=== PATIENT | female | born 1975 | race Caucasian/White ===

== ENCOUNTER 2018-04-29 23:20 | Observation (INO) ==
[2018-04-30] MEDS ORDERED: Isovue-370 500 ML INFUS..BTL IV ONE (01:06)
--- NOTE | 2018-04-30 01:12 | Emergency Department Note ---
Disposition Clinical Impression: Abscess of left breast Disposition: Admitted As Inpatient Condition: Fair Time of Disposition: 05:18 Skin/Abscess/FB HPI Chief complaint: ED Skin/Abscess/Foreign Body Stated complaint: "sore under Lt breast" Time Seen by Provider: 04/30/18 00:46 Source: patient Limitations: no limitations Nursing Notes Reviewed: Yes Vital Signs Reviewed: Yes HPI Narrative: Nontoxic-appearing 43-year-old female presents for evaluation of a left breast abscess noted to began approximate 5 days ago. The patient states "it started off like a small pimple". She states that "I popped the pimple and 2 days later he began to drain a white colored discharge." Yesterday, the entire medial and lower aspect of the left breast became erythematous. She complains of worsening pain, nausea, vomiting, and subjective fevers. Pt Subjective Complaint: abscess/boil Onset (ago): day(s) (5) Location: chest Severity: severe Severity scale (1-10): 8 Quality: aching Consistency: Worsening Improves with: none Worsens with: palpation Associated symptoms: Reports: fever, chills, nausea, vomiting, malaise Treatments prior to arrival: none Previous Rx's Medication Instructions Recorded Fenoprofen Calcium 600 mg PO TID PRN 10 Days #30 04/07/18 tablet Allergies Allergy/AdvReac Type Severity Reaction Status Date / Time acetaminophen [From Vicodin] Allergy Headache Verified 04/29/18 23:26 clarithromycin [From Biaxin] Allergy Difficulty Verified 04/29/18 23:26 Breathing hydrocodone [From Vicodin] Allergy Headache Verified 04/29/18 23:26 sumatriptan [From Imitrex] Allergy Hives Verified 04/29/18 23:26 All systems ED: reviewed and negative except as stated. Review of Systems: As Per HPI Constitutional: Denies: fever, chills, weakness, weight change Eyes: Denies: eye pain, eye discharge, vision change ENT ED: Denies: ear pain, throat pain, dental pain, hearing loss, epistaxis, congestion, dysphagia Cardiovascular: Denies: chest pain, palpitations, dyspnea on exertion, edema, syncope Respiratory: Denies: cough, dyspnea, wheezes, hemoptysis, stridor Gastrointestinal: Denies: abdominal pain, nausea, vomiting, diarrhea, constipation, hematemesis, melena, hematochezia Genitourinary: Denies: dysuria, frequency, hematuria, discharge Musculoskeletal: Denies: back pain, neck pain, arthralgia, myalgia Integumentary: Reports: as per HPI, other (Left breast abscess). Denies: rash, abrasion, lesions Neurological: Denies: headache, weakness, numbness, paresthesias, confusion, abnormal gait, vertigo Psychiatric: Denies: anxiety, depression, suicidal thoughts, homicidal thoughts , auditory hallucinations, visual hallucinations Endocrine: Denies: fatigue Hematological/Lymphatic: Denies: easy bleeding, easy bruising Allergic/Immunologic: Denies: facial swelling, urticaria Past Medical History - Past Medical History Attestation: Yes The following information was validated with the patient. Source: patient, nursing notes reviewed Medical history: Reports: non-contributory Surgical history: Reports: orthopedic, other (right knee scope) Psychiatric history: Reports: anxiety, bipolar, depression - Social History Smoking Status: Current every day smoker Smokeless Tobacco Status: No Alcohol use: Reports: none Drug use: Reports: none Physical Exam - General Limitations: no limitations General appearance: alert - Head Head exam: atraumatic, normocephalic, normal inspection - Eye Eye exam: Present: normal appearance, PERRL, EOMI. Absent: nystagmus - ENT ENT exam: mucous membranes moist - Neck Neck exam: Present: normal inspection, full ROM, trachea midline - Expanded Chest Exam Trauma: Present: other Breast: erythema: left, swelling: left, tenderness: left, mass: left - Extremities Exam Extremities exam: Present: normal inspection, full ROM. Absent: tenderness, pedal edema - Neurological Exam Neurological exam: Present: alert, oriented X3 - Psychiatric Psychiatric exam: Present: normal affect, normal mood - Skin Skin exam: Present: warm, dry - Expanded Skin Exam Type of lesion: Present: abscess 1 - Marked erythema of the medial/inferior quadrant of the left breast. Apparently cellulitic changes extend up to the level of the areola. Palpable area of induration measures approximately 3 cm x 2.5 cm within the area of cellulitis. Bedside ultrasound concerning for deep space abscess. 2 - Small, approximately 1 cm x 1 cm shallow-appearing ulceration with purulent drainage noted. Course Course Narrative: 0517: Dr. Jones, general surgeon insurance verification rep has had a bedside evaluation with the patient. He recommends the administration of IV vancomycin and admission to the hospitalist service for IV antibiotics and inpatient surgical consultation for probable abscess drainage. I discussed this plan with Dr. Savage, ED attending. Dr. Savage has had a [id number] evaluation with the patient and agrees with this plan. 0530: I spoke with Dr. Rubio, hospitalist on-call. After [facility] has accepted the patient for permission to the hospital service with in-house surgery consultation Vital Signs Temperature 98.7 F 04/29/18 23:26 Pulse Rate 90 04/29/18 23:26 Respiratory Rate 15 04/29/18 23:26 Blood Pressure 109/69 04/29/18 23:26 O2 Sat by Pulse Oximetry 98 04/29/18 23:26 Temperature 98.7 F 04/29/18 23:26 Pulse Rate 81 04/30/18 05:17 Respiratory Rate 18 04/30/18 05:17 Blood Pressure 119/77 04/30/18 05:17 O2 Sat by Pulse Oximetry 100 04/30/18 05:17 Oxygen Delivery Oxygen Delivery Room Air Skin/Abscess/Foreign Body - Medical Records Medical records reviewed: Yes I reviewed the patient's medical records. - Lab Data Lab results reviewed: Yes I reviewed the patient's lab results. Lab results narrative: Lab Results 04/30/18 04/30/18 04/30/18 Range/Units 01:06 01:06 01:06 WBC (4.3-11.1) K/mcL RBC (3.82-4.97) M/mcL Hgb (11.5-15.4) g/dL Hct (35.3-44.9) % MCV (83.0-100.0) fL MCH (28.0-33.3) pg MCHC (31.6-35.5) g/dL RDW (11.5-14.5) % Plt Count (140-400) K/mcL MPV (9.4-12.4) fL Immature Gran % (0-4) % Seg Neutrophils % % Lymphocytes % % Monocytes % % Eosinophils % % Basophils % % Neutrophils # (1.6-8.9) K/mcL Lymphocytes # (0.6-4.6) K/mcL Monocytes # (0.0-1.3) K/mcL Eosinophils # (0.0-0.6) K/mcL Basophils # (0.0-0.2) K/mcL ESR 36 H (0-15) mm/hr Sodium 134 L (136-145) mEq/L Potassium 3.3 L (3.5-5.1) mEq/L Chloride 99 (98-107) mEq/L Carbon Dioxide 28 (23-29) mEq/L BUN 10 (6-20) mg/dL Creatinine 0.66 (0.60-1.20) mg/dL Est GFR ( Amer) > 60 (> 60) Est GFR (Non-Af Amer) > 60 (> 60) BUN/Creatinine Ratio 15 (6-26) Glucose 106 H (70-105) mg/dL Calculated Osmolality 277 L (280-300) Calcium 9.4 (8.6-10.3) mg/dL C-Reactive Protein 80 H (Less than 10) mg/L Serum , Qual Negative (Negative) 04/30/18 Range/Units 02:05 WBC 11.8 H (4.3-11.1) K/mcL RBC 4.75 (3.82-4.97) M/mcL Hgb 14.3 (11.5-15.4) g/dL Hct 41.3 (35.3-44.9) % MCV 86.9 (83.0-100.0) fL MCH 30.1 (28.0-33.3) pg MCHC 34.6 (31.6-35.5) g/dL RDW 13.0 (11.5-14.5) % Plt Count 168 (140-400) K/mcL MPV 10.9 (9.4-12.4) fL Immature Gran % 0.4 (0-4) % Seg Neutrophils % 72.1 % Lymphocytes % 17.2 % Monocytes % 9.6 % Eosinophils % 0.5 % Basophils % 0.2 % Neutrophils # 8.5 (1.6-8.9) K/mcL Lymphocytes # 2.0 (0.6-4.6) K/mcL Monocytes # 1.1 (0.0-1.3) K/mcL Eosinophils # 0.1 (0.0-0.6) K/mcL Basophils # 0.0 (0.0-0.2) K/mcL ESR (0-15) mm/hr Sodium (136-145) mEq/L Potassium (3.5-5.1) mEq/L Chloride (98-107) mEq/L Carbon Dioxide (23-29) mEq/L BUN (6-20) mg/dL Creatinine (0.60-1.20) mg/dL Est GFR ( Amer) (> 60) Est GFR (Non-Af Amer) (> 60) BUN/Creatinine Ratio (6-26) Glucose (70-105) mg/dL Calculated Osmolality (280-300) Calcium (8.6-10.3) mg/dL C-Reactive Protein (Less than 10) mg/L Serum , Qual (Negative) Result diagrams: 04/30/18 02:05 04/30/18 01:06 Lab Results 04/30/18 04/30/18 04/30/18 Range/Units 01:06 01:06 01:06 WBC (4.3-11.1) K/mcL RBC (3.82-4.97) M/mcL Hgb (11.5-15.4) g/dL Hct (35.3-44.9) % MCV (83.0-100.0) fL MCH (28.0-33.3) pg MCHC (31.6-35.5) g/dL RDW (11.5-14.5) % Plt Count (140-400) K/mcL MPV (9.4-12.4) fL Immature Gran % (0-4) % Seg Neutrophils % % Lymphocytes % % Monocytes % % Eosinophils % % Basophils % % Neutrophils # (1.6-8.9) K/mcL Lymphocytes # (0.6-4.6) K/mcL Monocytes # (0.0-1.3) K/mcL Eosinophils # (0.0-0.6) K/mcL Basophils # (0.0-0.2) K/mcL ESR 36 H (0-15) mm/hr Sodium 134 L (136-145) mEq/L Potassium 3.3 L (3.5-5.1) mEq/L Chloride 99 (98-107) mEq/L Carbon Dioxide 28 (23-29) mEq/L BUN 10 (6-20) mg/dL Creatinine 0.66 (0.60-1.20) mg/dL Est GFR ( Amer) > 60 (> 60) Est GFR (Non-Af Amer) > 60 (> 60) BUN/Creatinine Ratio 15 (6-26) Glucose 106 H (70-105) mg/dL Calculated Osmolality 277 L (280-300) Calcium 9.4 (8.6-10.3) mg/dL C-Reactive Protein 80 H (Less than 10) mg/L Serum , Qual Negative (Negative) 04/30/18 Range/Units 02:05 WBC 11.8 H (4.3-11.1) K/mcL RBC 4.75 (3.82-4.97) M/mcL Hgb 14.3 (11.5-15.4) g/dL Hct 41.3 (35.3-44.9) % MCV 86.9 (83.0-100.0) fL MCH 30.1 (28.0-33.3) pg MCHC 34.6 (31.6-35.5) g/dL RDW 13.0 (11.5-14.5) % Plt Count 168 (140-400) K/mcL MPV 10.9 (9.4-12.4) fL Immature Gran % 0.4 (0-4) % Seg Neutrophils % 72.1 % Lymphocytes % 17.2 % Monocytes % 9.6 % Eosinophils % 0.5 % Basophils % 0.2 % Neutrophils # 8.5 (1.6-8.9) K/mcL Lymphocytes # 2.0 (0.6-4.6) K/mcL Monocytes # 1.1 (0.0-1.3) K/mcL Eosinophils # 0.1 (0.0-0.6) K/mcL Basophils # 0.0 (0.0-0.2) K/mcL ESR (0-15) mm/hr Sodium (136-145) mEq/L Potassium (3.5-5.1) mEq/L Chloride (98-107) mEq/L Carbon Dioxide (23-29) mEq/L BUN (6-20) mg/dL Creatinine (0.60-1.20) mg/dL Est GFR ( Amer) (> 60) Est GFR (Non-Af Amer) (> 60) BUN/Creatinine Ratio (6-26) Glucose (70-105) mg/dL Calculated Osmolality (280-300) Calcium (8.6-10.3) mg/dL C-Reactive Protein (Less than 10) mg/L Serum , Qual (Negative) - Radiology Data Radiology results reviewed: Yes I reviewed the patient's radiology results. Chest CT 04/30/18 01:06 IMPRESSION: Findings compatible with left breast cellulitis with focal collection along the inferior medial left breast almost certainly representing an abscess, as detailed above. D/ / Leoncio De La Garza / Leoncio De La Garza Interpreting Provider: Leoncio De La Garza Attestation Statement - Attestation Attestation: I, Govind Savage DO have provided [id number] time during the care of this patient. Detailed review the presentation, symptoms, medical history were discussed and reviewed with the mid-level provider Kee Godinez PA-C/[employer]. Medical intervention labs and imaging studies were reviewed in detail. See full documentation of physical exam and course of care in the mid-level provider's note. I agree with the determined course of care, medical intervention and disposition put forth by the mid-level provider. See below documentation for changes or alterations in documentation. .
[2018-04-30] MEDS ORDERED: *HR* FentaNYL (PF) 100 MCG/2 ML VIAL IVP ONE ×2 (02:13→03:52)
[2018-04-30 02:24] LABS: Basophils % 0.2 %; Eosinophils # 0.1 K/mcL (0.0-0.6); Eosinophils % 0.5 %; Hematocrit 41.3 % (35.3-44.9); Hemoglobin 14.3 g/dL (11.5-15.4); Immature Granulocytes % 0.4 % (0-4); Lymphocytes % 17.2 %; Mean Corpuscular HGB Conc 34.6 g/dL (31.6-35.5); Mean Corpuscular Hemoglobin 30.1 pg (28.0-33.3); Mean Corpuscular Volume 86.9 fL (83.0-100.0); Mean Platelet Volume 10.9 fL (9.4-12.4); Monocytes # 1.1 K/mcL (0.0-1.3); Monocytes % 9.6 %; Neutrophils # 8.5 K/mcL (1.6-8.9); Platelet Count 168 K/mcL (140-400); Red Blood Count 4.75 M/mcL (3.82-4.97); Segmented Neutrophils % 72.1 %
[2018-04-30 02:47] LABS: BUN/Creatinine Ratio 15 (6-26); Blood Urea Nitrogen 10 mg/dL (6-20); C-Reactive Protein 80 mg/L (Less than 10); Calcium 9.4 mg/dL (8.6-10.3); Carbon Dioxide 28 mEq/L (23-29); Chloride 99 mEq/L (98-107); Glucose 106 mg/dL (70-105); Osmolality,Calculated 277 (280-300); Potassium 3.3 mEq/L (3.5-5.1); Sodium 134 mEq/L (136-145); eGFR For Non-African Americans > 60 (> 60)
--- NOTE | 2018-04-30 04:05 | Emergency Department Note ---
Disposition Clinical Impression: Abscess of left breast Disposition: Admitted As Inpatient Condition: Fair Referrals: NONE,PCP [Primary Care Provider] - Forms: ED Satisfaction Letter Time of Disposition: 05:35 General Adult HPI - General Chief complaint: ED Skin/Abscess/Foreign Body Stated complaint: "sore under Lt breast" Time Seen by Provider: 04/30/18 00:46 Source: patient Limitations: no limitations - History of Present Illness Pain Scale: 8 - Related Data Previous Rx's Medication Instructions Recorded Fenoprofen Calcium 600 mg PO TID PRN 10 Days #30 04/07/18 tablet Allergies Allergy/AdvReac Type Severity Reaction Status Date / Time acetaminophen [From Vicodin] Allergy Headache Verified 04/29/18 23:26 clarithromycin [From Biaxin] Allergy Difficulty Verified 04/29/18 23:26 Breathing hydrocodone [From Vicodin] Allergy Headache Verified 04/29/18 23:26 sumatriptan [From Imitrex] Allergy Hives Verified 04/29/18 23:26 Constitutional: Denies: fever, chills, weakness, weight change Eyes: Denies: eye pain, eye discharge, vision change ENT ED: Denies: ear pain, throat pain, dental pain, hearing loss, epistaxis, congestion, dysphagia Cardiovascular: Denies: chest pain, palpitations, dyspnea on exertion, edema, syncope Respiratory: Denies: cough, dyspnea, wheezes, hemoptysis, stridor Gastrointestinal: Denies: abdominal pain, nausea, vomiting, diarrhea, constipation, hematemesis, melena, hematochezia Genitourinary: Denies: dysuria, frequency, hematuria, discharge Musculoskeletal: Denies: back pain, neck pain, arthralgia, myalgia Integumentary: Reports: as per HPI, other (Left breast abscess). Denies: rash, abrasion, lesions Neurological: Denies: headache, weakness, numbness, paresthesias, confusion, abnormal gait, vertigo Psychiatric: Denies: anxiety, depression, suicidal thoughts, homicidal thoughts , auditory hallucinations, visual hallucinations Endocrine: Denies: fatigue Hematological/Lymphatic: Denies: easy bleeding, easy bruising Allergic/Immunologic: Denies: facial swelling, urticaria Past Medical History - Past Medical History Medical history: Reports: non-contributory Surgical history: Reports: orthopedic, other (right knee scope) Psychiatric history: Reports: anxiety, bipolar, depression - Social History Smoking Status: Current every day smoker Smokeless Tobacco Status: No Alcohol use: Reports: none Drug use: Reports: none Physical Exam - General Limitations: no limitations General appearance: alert Course Vital Signs Temperature 98.7 F 04/29/18 23:26 Pulse Rate 90 04/29/18 23:26 Respiratory Rate 15 04/29/18 23:26 Blood Pressure 109/69 04/29/18 23:26 O2 Sat by Pulse Oximetry 98 04/29/18 23:26 Temperature 98.7 F 04/29/18 23:26 Pulse Rate 81 04/30/18 05:17 Respiratory Rate 18 04/30/18 05:17 Blood Pressure 119/77 04/30/18 05:17 O2 Sat by Pulse Oximetry 100 04/30/18 05:17 Oxygen Delivery Oxygen Delivery Room Air Medical Decision Making - Lab Data Result diagrams: 04/30/18 02:05 04/30/18 01:06 Lab Results 04/30/18 04/30/18 04/30/18 Range/Units 01:06 01:06 01:06 WBC (4.3-11.1) K/mcL RBC (3.82-4.97) M/mcL Hgb (11.5-15.4) g/dL Hct (35.3-44.9) % MCV (83.0-100.0) fL MCH (28.0-33.3) pg MCHC (31.6-35.5) g/dL RDW (11.5-14.5) % Plt Count (140-400) K/mcL MPV (9.4-12.4) fL Immature Gran % (0-4) % Seg Neutrophils % % Lymphocytes % % Monocytes % % Eosinophils % % Basophils % % Neutrophils # (1.6-8.9) K/mcL Lymphocytes # (0.6-4.6) K/mcL Monocytes # (0.0-1.3) K/mcL Eosinophils # (0.0-0.6) K/mcL Basophils # (0.0-0.2) K/mcL ESR 36 H (0-15) mm/hr Sodium 134 L (136-145) mEq/L Potassium 3.3 L (3.5-5.1) mEq/L Chloride 99 (98-107) mEq/L Carbon Dioxide 28 (23-29) mEq/L BUN 10 (6-20) mg/dL Creatinine 0.66 (0.60-1.20) mg/dL Est GFR ( Amer) > 60 (> 60) Est GFR (Non-Af Amer) > 60 (> 60) BUN/Creatinine Ratio 15 (6-26) Glucose 106 H (70-105) mg/dL Calculated Osmolality 277 L (280-300) Calcium 9.4 (8.6-10.3) mg/dL C-Reactive Protein 80 H (Less than 10) mg/L Serum , Qual Negative (Negative) 04/30/18 Range/Units 02:05 WBC 11.8 H (4.3-11.1) K/mcL RBC 4.75 (3.82-4.97) M/mcL Hgb 14.3 (11.5-15.4) g/dL Hct 41.3 (35.3-44.9) % MCV 86.9 (83.0-100.0) fL MCH 30.1 (28.0-33.3) pg MCHC 34.6 (31.6-35.5) g/dL RDW 13.0 (11.5-14.5) % Plt Count 168 (140-400) K/mcL MPV 10.9 (9.4-12.4) fL Immature Gran % 0.4 (0-4) % Seg Neutrophils % 72.1 % Lymphocytes % 17.2 % Monocytes % 9.6 % Eosinophils % 0.5 % Basophils % 0.2 % Neutrophils # 8.5 (1.6-8.9) K/mcL Lymphocytes # 2.0 (0.6-4.6) K/mcL Monocytes # 1.1 (0.0-1.3) K/mcL Eosinophils # 0.1 (0.0-0.6) K/mcL Basophils # 0.0 (0.0-0.2) K/mcL ESR (0-15) mm/hr Sodium (136-145) mEq/L Potassium (3.5-5.1) mEq/L Chloride (98-107) mEq/L Carbon Dioxide (23-29) mEq/L BUN (6-20) mg/dL Creatinine (0.60-1.20) mg/dL Est GFR ( Amer) (> 60) Est GFR (Non-Af Amer) (> 60) BUN/Creatinine Ratio (6-26) Glucose (70-105) mg/dL Calculated Osmolality (280-300) Calcium (8.6-10.3) mg/dL C-Reactive Protein (Less than 10) mg/L Serum , Qual (Negative) Attestation Statement - Attestation Attestation: I, Govind Savage DO have provided [id number] time during the care of this patient. Detailed review the presentation, symptoms, medical history were discussed and reviewed with the mid-level provider Kee Godinez PA-C/ISMAEL. Medical intervention labs and imaging studies were reviewed in detail. See full documentation of physical exam and course of care in the mid-level provider's note. I agree with the determined course of care, medical intervention and disposition put forth by the mid-level provider. See below documentation for changes or alterations in documentation. 43-year-old female presents emergency room with concern for infection versus abscess to the left breast. Consent pain symptoms at approximate 5 days. She denies any trauma or injury. She noticed a small area of induration just at the margin of the breast of the chest wall several days ago. She popped. There was a small amount of discharge that was removed. Since then she has of persistently worsening pain redness warmth and swelling to left breast. Today' s been so painful that she is unable to put her bra on. Patient denies any fevers or chills no chest pain shortness of breath headache vision changes nausea vomiting or diarrhea. She has no history of breast cancer surgical manipulation or other etiology at this time. Physical exam is unremarkable except for the left breast. Her lungs appear to be clear heart is regular the left breast has no tenderness swelling or lymph nodes noted in the suspensory ligaments of the breast or in the axilla. She does have what appears to be a firm indurated red area to the inferior medial aspect the left breast at the skin margin of the chest wall. Ultrasound was utilized at this showed a well circumcised area that is concerning for possible solid mass tumor versus abscess E. Because the location as well as involvement of the tissue is determined CT imaging with IV contrast will be ordered. Screening labs including CBC chemistry and blood cultures were ordered at this time. Disposition been afforded treatment course. Pain medication will be provided by oral intake. Patient otherwise clinical stable. Tetanus status will be confirmed and will be provided with the patient needs tetanus booster. See detailed documentation the physical exam, medical intervention, medical decision -making and disposition in the mid-level provider's note. 0325 Patient found to have abscesses left breast based on CT scan. Little concern for cancers presentation this time based on the imaging modality. The on-call surgeon will be contacted secondary to the location of the injury and infection. Antibiotic regimen will be determined after surgical interpretation evaluation. 0577 Patient was discussed with the surgeon Dr. Jones. Recommended admission and IV antibiotics and then evaluation by the breast surgeon here in the hospital. No other acute concerns or issues noted this point. Admission process to be established. Patient otherwise clinically stable in no distress.
[2018-04-30] MEDS ORDERED: *HR* OxyCODONE/APAP 5/325 TABLET PO ONE (04:56)
[2018-04-30] MEDS ORDERED: Acetaminophen 325 MG TABLET PO PRN (06:01)
[2018-04-30] MEDS ORDERED: traMADol 50 MG TABLET PO PRN (06:01)
[2018-04-30] MEDS ORDERED: Aminoglycoside Consult 1 EACH MC ONE (06:03)
--- NOTE | 2018-04-30 06:10 | Internal Med History&Physical ---
Date of Encounter: 04/30/18 Time of Encounter: 06:07 Internal Medicine - H&P: HPI Chief complaint: left breast pain Admitted From: Home Plans for Post Hospital Care: Home History of present illness: Ms. Heard is a 43 year old female with a history of migraine headaches who presents with the complaint of left breast pain and swelling. 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 She popped this with only a minute amount of white pus coming out. The next day she noticed significant swelling and erythema to this area where she had popped progressed over the subsequent days with diffuse redness, swelling and exquisite pain. This is accompanied by subjective fever and chills. Given the increasing severity she decided to seek medical attention. The findings upon arrival to the ER were concerning enough to prompt a CAT scan which was consistent with cellulitis of the left breast and early formation of an abscess. She was also transiently evaluated by surgery who will act as a consulting service. Her vital signs were within normal limits and had only small elevation in her leukocyte count. On my assessment she was lying in bed comfortably. She reports smoking 1 pack of cigarettes daily and occasional alcohol use and no history of illicit drug use. Denies diabetes and prior episodes of infection. Past Med Surg Social Fam HX - Past Medical History Medical history: non-contributory Psychiatric history: anxiety, bipolar, depression - Past Surgical History Surgical History: orthopedic, other (right knee scope) Additional surgical history: R knee scope, tubal ligation, uterine ablation, laproscopy - Social History Smoking Status: Current every day smoker Smokeless Tobacco Status: No Alcohol use: none Drug use: none Internal Medicine - H&P: Meds Fenoprofen Calcium 600 mg PO TID PRN 10 Days #30 tablet 04/07/18 [Rx] 3 Allergy/AdvReac Type Severity Reaction Status Date / Time acetaminophen [From Vicodin] Allergy Headache Verified 04/29/18 23:26 clarithromycin [From Biaxin] Allergy Difficulty Verified 04/29/18 23:26 Breathing hydrocodone [From Vicodin] Allergy Headache Verified 04/29/18 23:26 sumatriptan [From Imitrex] Allergy Hives Verified 04/29/18 23:26 All Systems PM: A 10-system review of systems was performed and is negative for pertinent findings except as documented above in the HPI. - Constitutional Vitals: Temp Pulse Resp BP Pulse Ox 98.7 F 81 18 119/77 100 04/29/18 23:26 04/30/18 05:17 04/30/18 05:17 04/30/18 05:17 04/30/18 05:17 Exam: Vitals: Reviewed and seen to be within normal limits General: Well-developed female lying in bed in no acute distress Skin: Notable erythema overlying the left breast in its medial aspect with a subcentimeter-sized opening underneath the left breast with some pus at the tip ; diffusely tender to palpation with a 4 cm firm mass induration noted within the breast tissue in its inferior aspect without fluctuance. HEENT: Moist mucous membranes. No conjunctivae pallor. Neck: No lymphadenopathy. No JVD. No carotid bruits. No palpable thyroid. Chest: Normal thoracic expansion. Normal breath sounds. Clear to auscultation. Heart: Normal S1 & S2; rhythmic. No rubs or murmurs. Abdomen: Non-distended, soft and non-tender to palpation. No peritoneal reaction. Liver is normal in size. Spleen is not palpable. Extremities: No clubbing, cyanosis or edema. No calf tenderness. Normal distal pulses. Neurological: Awake, alert and oriented to person, place and time. No focal deficits. Psych: Affect appropriate. Internal Med - H&P Results - Labs CBC & Chem 7: 04/30/18 02:05 04/30/18 01:06 - Assessment and plan (1) Abscess of left breast Current Visit: Yes Status: Acute Assessment and plan: Seen to have significant inflammatory changes in this delicate area consistent with cellulitis and a focal induration suggestive of an abscess formation. It can easily spread if not managed appropriately. Trauma-induced. Images on CT were reviewed and concurrent with the clinical findings. -Will place on IV vancomycin to be dosed by pharmacy to cover Staph/Strep as the most likely culprit organisms. Blood cultures obtained. -Surgery consult placed to consider I&D when and if feasible. (2) Hypokalemia Current Visit: Yes Status: Acute Assessment and plan: Mild. -1 dose of KCL ordered. (3) Tobacco dependence Current Visit: Yes Status: Chronic Assessment and plan: Counseled on the need to stop smoking and educated on resources available. (4) Migraine Current Visit: Yes Status: Chronic Assessment and plan: Inactive at this time and not warranting intervention. Of note she reports intolerance to sumatriptan and hydrocodone that were previously used for this. Qualifiers: Migraine type: unspecified Status migrainosus presence: without status migrainosus Intractability: not intractable Qualified Code(s): G43.909 - Migraine, unspecified, not intractable, without status migrainosus (5) DVT prophylaxis Current Visit: Yes Status: Acute Assessment and plan: SubQ heparin indicated. - Time Spent With Patient Total time spent is greater than 50% in coordination of care (as documented) at patient's floor/unit and/or counseling patient: 25 - 35 minutes
[2018-04-30] MEDS: Ringers Solution, Lactated 1,000 ML IVC SCH ×2 (06:51→21:21)
--- NOTE | 2018-04-30 07:48 | General Surgery Consult Note ---
Date of Encounter: 04/30/18 Time of Encounter: 07:45 Assessment and Plan (1) Abscess of left breast Current Visit: Yes Status: Acute 43F with breast abscess; very small fluid collection on CT; NPO IVF formal US by radiology likely too small to drain abx per primary team will cont to follow History of Present Illness Consult date: 04/30/18 Reason for consult: other (cellulitis of the breast) History of present illness: 43F with 5 day history of worsening redness of her breast and 2 days of worsening pain. She does report subjective fevers/chills; no associated nausea and vomiting. Her primary complaint is the pain. She has not received any antibiotics prior to evaluation in the ED. CT scan was obtained which demonstrates a small fluid collection. Past Med Surg Social Fam HX - Past Medical History Medical history: non-contributory Psychiatric history: anxiety, bipolar, depression - Past Surgical History Surgical History: orthopedic, other (right knee scope) Additional surgical history: R knee scope, tubal ligation, uterine ablation, laproscopy - Social History Smoking Status: Current every day smoker Smokeless Tobacco Status: No Alcohol use: none Drug use: none Medications and Allergies Fenoprofen Calcium 600 mg PO TID PRN 10 Days #30 tablet 04/07/18 [Rx] 3 Allergy/AdvReac Type Severity Reaction Status Date / Time acetaminophen [From Vicodin] Allergy Headache Verified 04/29/18 23:26 clarithromycin [From Biaxin] Allergy Difficulty Verified 04/29/18 23:26 Breathing hydrocodone [From Vicodin] Allergy Headache Verified 04/29/18 23:26 sumatriptan [From Imitrex] Allergy Hives Verified 04/29/18 23:26 Review of Systems All systems PM: The remainder of the systems were reviewed and are negative General Surgery Exam Initial Vital Signs Temp Pulse Resp BP Pulse Ox 98.7 F 90 15 109/69 98 04/29/18 23:26 04/29/18 23:26 04/29/18 23:26 04/29/18 23:26 04/29/18 23:26 - General physical appearance no distress - Eyes normal ocular movement - ENT normocephalic - Neck no lymphadectomy - Respiratory normal expansion, normal respiratory effort - Cardiovascular Cardiovascular exam: Present: RRR - Abdomen Abdomen general surgery: Present: soft, non tender - Integumentary Integumentary general surgery: Present: other (left breast erythema, TTP; warm, no purulent drainage; ) - Neurologic Present: CN 2-12 grossly intact - Musculoskeletal Present: normal posture - Psychiatric Psychiatric general surgery: Present: A&Ox3 Exam Initial Vital Signs Temp Pulse Resp BP Pulse Ox 98.7 F 90 15 109/69 98 04/29/18 23:26 04/29/18 23:26 04/29/18 23:26 04/29/18 23:26 04/29/18 23:26 Results - Labs 04/30/18 02:05 04/30/18 01:06 Abnormal lab results WBC 11.8 K/mcL (4.3-11.1) H 04/30/18 02:05 ESR 36 mm/hr (0-15) H 04/30/18 01:06 Sodium 134 mEq/L (136-145) L 04/30/18 01:06 Potassium 3.3 mEq/L (3.5-5.1) L 04/30/18 01:06 Glucose 106 mg/dL (70-105) H 04/30/18 01:06 Calculated Osmolality 277 (280-300) L 04/30/18 01:06 C-Reactive Protein 80 mg/L (Less than 10) H 04/30/18 01:06 All other labs normal. - Imaging CT scan - chest: report reviewed, image reviewed Consult Discharge Plan - Plan Referrals: NONE,PCP [Primary Care Provider] -
[2018-04-30] MEDS ORDERED: Potassium Chloride Elixir 20 MEQ/15 ML UDC PO ONE (08:00)
--- NOTE | 2018-04-30 11:33 | Event Note ---
Date of Encounter: 04/30/18 Time of Encounter: 11:29 43 F being managed for L breast cellulitis with abscess On Vancomycin Surgery eval noted , no intervention for now Awaiting L breast USS She reports no visible improvement Exam noted for L breast erythema with punctum with asbcess at the lower inner quadrant, other systems unremarkable Continue current management
[2018-04-30] MEDS: *HR* OxyCODONE Immed Rel 5 MG TABLET PO PRN ×2 (12:04→17:56)
[2018-04-30] MEDS: *HR* Heparin 5,000 UNIT/ML VIAL SQ SCH ×2 (14:51→21:16)
[2018-04-30] MEDS: Clindamycin 600 MG/50 ML 600 MG/50 ML IV.SOLN IVPB SCH ×2 (14:51→21:15)
[2018-05-01] MEDS: *HR* OxyCODONE Immed Rel 5 MG TABLET PO PRN ×4 (00:32→21:25)
[2018-05-01 05:03] LABS: Basophils % 0.3 %; Eosinophils # 0.1 K/mcL (0.0-0.6); Eosinophils % 0.7 %; Hematocrit 34.4 % (35.3-44.9); Hemoglobin 11.4 g/dL (11.5-15.4); Immature Granulocytes % 0.3 % (0-4); Lymphocytes # 1.6 K/mcL (0.6-4.6); Lymphocytes % 21.2 %; Mean Corpuscular HGB Conc 33.1 g/dL (31.6-35.5); Mean Corpuscular Hemoglobin 28.6 pg (28.0-33.3); Mean Corpuscular Volume 86.2 fL (83.0-100.0); Mean Platelet Volume 11.3 fL (9.4-12.4); Monocytes # 0.6 K/mcL (0.0-1.3); Monocytes % 8.3 %; Neutrophils # 5.1 K/mcL (1.6-8.9); Platelet Count 134 K/mcL (140-400); Red Blood Count 3.99 M/mcL (3.82-4.97); Segmented Neutrophils % 69.2 %
[2018-05-01 05:13] LABS: INR 1.1; Prothrombin Time 12.1 Seconds (9.4-12.1)
[2018-05-01 05:17] LABS: Activated Partial Thrombo Time 27.8 Seconds (26.0-36.0)
[2018-05-01 05:22] LABS: BUN/Creatinine Ratio 14 (6-26); Blood Urea Nitrogen 8 mg/dL (6-20); Calcium 8.8 mg/dL (8.6-10.3); Carbon Dioxide 24 mEq/L (23-29); Chloride 106 mEq/L (98-107); Glucose 100 mg/dL (70-105); Osmolality,Calculated 278 (280-300); Potassium 3.9 mEq/L (3.5-5.1); Sodium 135 mEq/L (136-145); eGFR For Non-African Americans > 60 (> 60)
[2018-05-01] MEDS: Clindamycin 600 MG/50 ML 600 MG/50 ML IV.SOLN IVPB SCH ×3 (05:39→21:13)
[2018-05-01] MEDS: *HR* Heparin 5,000 UNIT/ML VIAL SQ SCH ×3 (05:39→21:16)
--- NOTE | 2018-05-01 08:55 | General Surgery Progress Note ---
<Marlen Raman Shailesh - Last Filed: 05/01/18 10:12> Date of Encounter: 05/01/18 Time of Encounter: 07:45 - Assessment and Plan (1) Abscess of left breast Current Visit: Yes Status: Acute Cellulitis/induration remains. It is within the previously drawn margins. Continue IV antibiotics per primary team we will plan for surgical intervention in the next 24 to 48 hours. Recommendations, risks, and benefits have been reviewed with the patient and she is agreeable to proceed. A signed consent is placed on the hard chart. Continue regular diet today. NPO at midnight (noted order placement by primary team, thank you for your assistance). Add scheduled Toradol Q6 hours for 3 doses continued PRN medication for breakthrough pain Further recommendations pending surgical intervention. (2) Tobacco dependence Current Visit: Yes Status: Chronic Consult respiratory for aggressive pulmonary toileting both preoperatively and postoperative. Add scheduled duonebs Subjective Patient reports: still having pain, tolerating liquids well, voiding w/o difficulty, flatus, bowel movement, afebrile Objective Vital Signs - Last 8 Hours Temp Pulse Resp BP Pulse Ox 05/01/18 07:14 98.3 F 64 14 109/73 98 05/01/18 03:34 98.7 F 66 15 118/72 99 Intake and Output 04/30/18 05/01/18 05/01/18 23:59 07:59 15:59 Intake Total 1360 / 1360 900 / 900 Output Total 0 / 0 1000 / 1000 Balance 1360 / 1360 -100 / -100 Intake: IV Fluids 1000 / 1000 900 / 900 Lactated Ringers 1,000 ML @ 100 1000 / 1000 800 / 800 mls/hr IVC .Q10H KYLE Rx#: [id number] Cleocin Premix 600 MG/50 ML 600 100 / 100 mg In 50 ml @ 50 mls/hr IVPB Q8H KYLE Rx#:[id number] Oral 360 / 360 0 / 0 Output: Urine 0 / 0 1000 / 1000 Other: Meal Dinner Percent of Meal Consumed 100% # Voids 1 Weight 70.3 kg - General physical appearance no distress, moderate pain (left breast) - Eyes normal ocular movement - ENT normal nares, normal mucosa, poor correction - Neck Neck exam: trachea midline - Respiratory normal expansion, normal respiratory effort - Cardiovascular Cardiovascular exam: Present: RRR - Abdomen Abdomen: Present: bowel sounds present, soft, non tender Hernia: none - Genitourinary other (Left Breast: left breast w/cellulitis/induration that is within the previously drawn margins. No drainage noted. There is a small area in the mid- inferior portion (the breast fold) that is scabbed over. Pt states last drainage two days ago.) - Integumentary no rash - Neurologic normal coordination, normal sensation - Musculoskeletal normal posture - Psychiatric oriented to time, oriented to person, oriented to place - Labs 05/01/18 04:38 05/01/18 04:38 Diabetes panel 05/01/18 Range/Units 04:38 Sodium 135 L (136-145) mEq/L Potassium 3.9 (3.5-5.1) mEq/L Chloride 106 (98-107) mEq/L Carbon Dioxide 24 (23-29) mEq/L BUN 8 (6-20) mg/dL Creatinine 0.57 L (0.60-1.20) mg/dL Glucose 100 (70-105) mg/dL Calcium 8.8 (8.6-10.3) mg/dL Calcium panel 05/01/18 Range/Units 04:38 Calcium 8.8 (8.6-10.3) mg/dL Pituitary panel 05/01/18 Range/Units 04:38 Sodium 135 L (136-145) mEq/L Potassium 3.9 (3.5-5.1) mEq/L Chloride 106 (98-107) mEq/L Carbon Dioxide 24 (23-29) mEq/L BUN 8 (6-20) mg/dL Creatinine 0.57 L (0.60-1.20) mg/dL Glucose 100 (70-105) mg/dL Calcium 8.8 (8.6-10.3) mg/dL Adrenal panel 05/01/18 Range/Units 04:38 Sodium 135 L (136-145) mEq/L Potassium 3.9 (3.5-5.1) mEq/L Chloride 106 (98-107) mEq/L Carbon Dioxide 24 (23-29) mEq/L BUN 8 (6-20) mg/dL Creatinine 0.57 L (0.60-1.20) mg/dL Glucose 100 (70-105) mg/dL Calcium 8.8 (8.6-10.3) mg/dL Consult Discharge Plan - Plan Referrals: NONE,PCP [Primary Care Provider] - <José Jones - Last Filed: 05/02/18 06:52> Date of Encounter: 05/02/18 - Assessment and Plan (1) Abscess of left breast Current Visit: Yes Status: Acute Objective Vital Signs - Last 8 Hours Temp Pulse Resp BP Pulse Ox 05/02/18 03:32 98.1 F 82 15 105/65 95 05/01/18 23:47 16 98 Intake and Output 05/01/18 05/01/18 05/02/18 15:59 23:59 07:59 Intake Total 610 / 610 410 / 410 50 / 50 Output Total 800 / 800 500 / 500 250 / 250 Balance -190 / -190 -90 / -90 -200 / -200 Intake: IV Fluids 250 / 250 50 / 50 50 / 50 Lactated Ringers 1,000 ML @ 100 200 / 200 mls/hr IVC .Q10H KYLE Rx#: [id number] Cleocin Premix 600 MG/50 ML 600 50 / 50 50 / 50 50 / 50 mg In 50 ml @ 50 mls/hr IVPB Q8H KYLE Rx#:[id number] Oral 360 / 360 360 / 360 0 / 0 Output: Urine 800 / 800 500 / 500 250 / 250 Other: Meal Lunch Dinner Percent of Meal Consumed 50% 100% # Bowel Movements 0 0 Weight 69.4 kg Blood Glucose* 112 Patient Weight 05/02/18 23:59 Weight 69.4 kg - Labs 05/01/18 04:38 05/01/18 04:38 - Attending Attestation I have personally seen and examined the patient. I have reviewed pertinent labs , imaging, progress notes, including this one. I agree with the above assessment and plan and wish to include the following... plan for OR on 05/02
--- NOTE | 2018-05-01 10:55 | Internal Med Progress Note ---
Hospitalist Progress Note - Encounter Date of Encounter: 05/01/18 Time of Encounter: 10:55 - Subjective Interval History: 43 F admitted to obs and being managed for L breast cellulitis with abscess She was initially on vancomycin, changed to clindamycin as patient had no risk factors for resistant MRSA She is being followed by surgery Breast USS done 04/30 showed 3.3 cm abscess She denies new complains L breast redness is improving but punctum at the lower inner quadrant persistent , without drainage, swelling and pain persists Surgery plans to take her to OR a.m for I and D - Exam Vitals: Temp Pulse Resp BP Pulse Ox 98.2 F 73 14 109/70 98 05/01/18 10:51 05/01/18 10:51 05/01/18 10:51 05/01/18 10:51 05/01/18 10:51 Exam: General: Patient is alert, no acute distress, oriented x 3 Head: atraumatic, normocephalic, Eye: normal appearance, PERRL, no scleral icterus, no conjunctival injection Neck: normal inspection, trachea midline, full ROM, no carotid bruits Breasts: L breast erythema with punctum with asbcess at the lower inner quadrant , other systems unremarkable Respiratory: Good respiratory effort. Normal breath sounds. No wheezing or crackles. Cardiovascular: Regular rate and rhythm. s1 and s2 No clicks, rubs, gallops, or murmurs. No pedal edema Abdomen: Abdomen is soft, not tender Musculoskeletal: Spontaneously moving all extremities Skin: warm, dry, intact. Neuro: Alert oriented x 3 normal cranial nerves, no focal deficits Psych: Patient's affect is normal - Assessment and Plan (1) Abscess of left breast Current Visit: Yes Status: Acute Assessment and Plan: Preceeded by glass cut at work Not septic Continue Clindamycin Follow wound and blood cultures For I and D a.m, follow cultures pain control Surgery input appreciated (2) Hypokalemia Current Visit: Yes Status: Resolved Assessment and Plan: Now normal, continue to monitor (3) Tobacco dependence Current Visit: Yes Status: Chronic Assessment and Plan: Counseled on the need to stop smoking and educated on resources available. (4) DVT prophylaxis Current Visit: Yes Status: Acute Assessment and Plan: SubQ heparin (5) Migraine Current Visit: Yes Status: Chronic Assessment and Plan: Inactive at this time and not warranting intervention. Of note she reports intolerance to sumatriptan and hydrocodone that were previously used for this. - Time Spent with Patient Total time spent is greater than 50% in coordination of care (as documented) at patient's floor/unit and/or counseling patient: Plan of Care Discussed with: patient Internal Medicine: Result - Labs CBC & Chem 7: 05/01/18 04:38 05/01/18 04:38 Labs: Short CBC 05/01/18 Range/Units 04:38 WBC 7.4 (4.3-11.1) K/mcL Hgb 11.4 L D (11.5-15.4) g/dL Hct 34.4 L (35.3-44.9) % Plt Count 134 L (140-400) K/mcL Neutrophils # 5.1 (1.6-8.9) K/mcL BMP 05/01/18 04:38 Sodium 135 L Potassium 3.9 Chloride 106 Carbon Dioxide 24 BUN 8 Creatinine 0.57 L Glucose 100 Calcium 8.8 - ABG Interpretation ABG results: PT/INR, D-dimer PT 12.1 Seconds (9.4-12.1) 05/01/18 04:38 - Impressions Impressions Breast Ultrasound 04/30/18 13:00 IMPRESSION: There is a 3.3 cm left breast abscess. BIRADS: BIRADS - CATEGORY 3 Findings are probably benign. A short interval follow-up is recommended in 4-6 weeks. Short-term follow-up can be canceled if the finding completely resolves clinically. OVERALL ASSESSMENT - PROBABLY BENIGN. D/ / 04/30/2018 14:11:21 Renzo Akbar MD / Mary Mejia Interpreting Provider: Renzo Akbar MD Consult Discharge Plan - Plan Referrals: NONE,PCP [Primary Care Provider] - (5) Migraine Qualifiers: Migraine type: unspecified Status migrainosus presence: without status migrainosus Intractability: not intractable Qualified Code(s): G43.909 - Migraine, unspecified, not intractable, without status migrainosus
[2018-05-01] MEDS: Ipratropium/Albuterol Neb 3 ML IH SCH ×4 (11:04→23:46)
[2018-05-01] MEDS: Ketorolac 15 MG/ML VIAL IVP SCH ×3 (11:19→23:30)
--- NOTE | 2018-05-01 19:36 | Anesthesia Evaluation PreOp ---
Date of Encounter: 05/01/18 Time of Encounter: 19:34 - Past History Planned Operation: I&D Left Breast abcess Pulmonary History: Smoker (None since last Saturday) GUT SORTER History: Other (anxity/depression, Bipolar) Other Medical History: Denies Any Significant HX Anesthesia History: No Prior Anesthetic Complications, Past Anesthesia ( R knee scope, tubal ligation, uterine ablation, laproscopy) : No Test: Negative (04/30/2018) Alcohol Use: none Drug use: none Medications and Allergies Fenoprofen Calcium 600 mg PO TID PRN 10 Days #30 tablet 04/07/18 [Rx] 3 Allergy/AdvReac Type Severity Reaction Status Date / Time acetaminophen [From Vicodin] Allergy Headache Verified 04/29/18 23:26 clarithromycin [From Biaxin] Allergy Difficulty Verified 04/29/18 23:26 Breathing hydrocodone [From Vicodin] Allergy Headache Verified 04/29/18 23:26 sumatriptan [From Imitrex] Allergy Hives Verified 04/29/18 23:26 - Meds/Allergy Pre-op Review Medications Reviewed: Yes Allergies Reviewed: Yes Beta Blockers on Current Med List: No Anesthesia Results - Labs 05/01/18 04:38 05/01/18 04:38 Laboratory Tests 04/30/18 01:06 Serum , Qual Negative Anesthesia Exam Vital Signs/O2 Sat, Most Current Temp Pulse Resp BP Pulse Ox 98.5 F 66 16 109/69 98 05/01/18 14:21 05/01/18 14:21 05/01/18 16:00 05/01/18 14:21 05/01/18 16:00 - HEENT Pupil (Motor): Pupils equal, EOMI Mallampati: I Teeth: Normal Oral Opening: Greater than 3 - GUT SORTER LOC: Oriented GUT SORTER Motor: Normal RUE, Normal LUE, Normal RLE, Normal LLE, Normal Face GUT SORTER Sensory: Normal: RUE, LUE, RLE, LLE, Face - Cardiac Rhythm: Regular Murmur: None JVD: No Carotid Bruit: No - Pulmonary Breath Sounds: bilateral Clear Respiratory Effort: Symmetrical Anesthesia Assess/Plan ASA Score: 2 Modified Hanna Scale for Level of Consciousness: Cooperative, oriented, and tranquil Anesthetic Plan: General Autologous Blood: Yes Monitoring Plan: Standard Monitors Recovery Plan: PACU
[2018-05-02] MEDS: Ipratropium/Albuterol Neb 3 ML IH SCH ×6 (04:02→23:12)
[2018-05-02] MEDS: Clindamycin 600 MG/50 ML 600 MG/50 ML IV.SOLN IVPB SCH ×3 (05:14→21:13)
[2018-05-02] MEDS: *HR* Heparin 5,000 UNIT/ML VIAL SQ SCH ×3 (05:19→21:18)
[2018-05-02] MEDS ORDERED: D5% in 0.45% NACL w KCl 20 MEQ/1,000 ML MLS IVC SCH ×2 (07:00→18:16)
[2018-05-02] MEDS: *HR* OxyCODONE Immed Rel 5 MG TABLET PO PRN ×2 (08:03→13:31)
--- NOTE | 2018-05-02 10:02 | Internal Med Progress Note ---
Hospitalist Progress Note - Encounter Date of Encounter: 05/02/18 Time of Encounter: 10:02 - Subjective Interval History: 43 F admitted to obs and being managed for L breast cellulitis with abscess She was initially on vancomycin, changed to clindamycin as patient had no risk factors for resistant MRSA She is being followed by surgery Breast USS done 04/30 showed 3.3 cm abscess She denies new complains For OR today by surgery - Exam Vitals: Temp Pulse Resp BP Pulse Ox 98.9 F 71 16 104/68 98 05/02/18 06:52 05/02/18 06:52 05/02/18 07:57 05/02/18 06:52 05/02/18 08:37 Exam: General: Patient is alert, no acute distress, oriented x 3 Head: atraumatic, normocephalic, Eye: normal appearance, PERRL, no scleral icterus, no conjunctival injection Neck: normal inspection, trachea midline, full ROM, no carotid bruits Breasts: L breast erythema with punctum with asbcess at the lower inner quadrant , other systems unremarkable Respiratory: Good respiratory effort. Normal breath sounds. No wheezing or crackles. Cardiovascular: Regular rate and rhythm. s1 and s2 No clicks, rubs, gallops, or murmurs. No pedal edema Abdomen: Abdomen is soft, not tender Musculoskeletal: Spontaneously moving all extremities Skin: warm, dry, intact. Neuro: Alert oriented x 3 normal cranial nerves, no focal deficits Psych: Patient's affect is normal - Assessment and Plan (1) Abscess of left breast Current Visit: Yes Status: Acute Assessment and Plan: Preceeded by glass cut at work Not septic Continue Clindamycin-day 2, Day 3 total of IV a/b Follow wound and blood cultures For I and D a.m, follow cultures pain control Surgery input appreciated (2) Hypokalemia Current Visit: Yes Status: Resolved Assessment and Plan: Now normal, continue to monitor (3) Tobacco dependence Current Visit: Yes Status: Chronic Assessment and Plan: Counseled on the need to stop smoking and educated on resources available. (4) DVT prophylaxis Current Visit: Yes Status: Acute Assessment and Plan: SubQ heparin (5) Migraine Current Visit: Yes Status: Chronic Assessment and Plan: Inactive at this time and not warranting intervention. Of note she reports intolerance to sumatriptan and hydrocodone that were previously used for this. - Time Spent with Patient Total time spent is greater than 50% in coordination of care (as documented) at patient's floor/unit and/or counseling patient: Plan of Care Discussed with: patient Internal Medicine: Result - Labs CBC & Chem 7: 05/01/18 04:38 05/01/18 04:38 - ABG Interpretation ABG results: PT/INR, D-dimer PT 12.1 Seconds (9.4-12.1) 05/01/18 04:38 Consult Discharge Plan - Plan Referrals: NONE,PCP [Primary Care Provider] - (5) Migraine Qualifiers: Migraine type: unspecified Status migrainosus presence: without status migrainosus Intractability: not intractable Qualified Code(s): G43.909 - Migraine, unspecified, not intractable, without status migrainosus
[2018-05-02] MEDS ORDERED: *HR* FentaNYL (PF) 100 MCG/2 ML VIAL ONE (15:54)
[2018-05-02] MEDS ORDERED: *HR* Propofol 200 MG/20 ML VIAL IVP ONE (15:54)
[2018-05-02] MEDS ORDERED: Ketorolac 30 MG/ML VIAL ONE (15:54)
[2018-05-02] MEDS ORDERED: Lidocaine -MPF 2% 2 ML VIAL ONE (15:54)
[2018-05-02] MEDS ORDERED: Dexamethasone 4 MG/ML VIAL ONE (15:54)
[2018-05-02] MEDS ORDERED: Ondansetron 4 MG/2 ML VIAL ONE (15:54)
[2018-05-02] MEDS ORDERED: *HR* Midazolam HCl 2 MG/2 ML VIAL ONE (15:54)
[2018-05-02] MEDS ORDERED: Vancomycin 1,000 MG VIAL ONE (17:09)
[2018-05-02] MEDS ORDERED: *HR* OxyCODONE Immed Rel 5 MG TABLET PO PRN ×2 (17:41→18:16)
[2018-05-02] MEDS ORDERED: *HR* Meperidine 25 MG/ML SYRINGE IVP PRN (17:41)
[2018-05-02] MEDS ORDERED: *HR* Promethazine 25 MG/ML VIAL IVP PRN (17:41)
[2018-05-02] MEDS: *HR* Morphine 2 MG/ML SYRINGE IVP PRN ×3 (17:43→18:02)
--- NOTE | 2018-05-02 17:54 | Operative Note ---
Date of procedure: 05/02/18 Pre-op diagnosis: left breast abscess Post-op diagnosis: same Procedure: incision and drainage of left breast abscess Implants: none Complications: none Anesthesia: GETA Local Anesthetics: 0.5% Sensorcaine HCL SubQ (cc) Surgeon: José Jones Was there an special events assistant present: No Sales Strategy Manager Other: hortensia Estimated blood loss (cc): 5 Specimen: culture of purulent drainage Condition: stable Disposition: PACU Procedure in Detail: patient was brought into the operating room suite. placed in the supine position. Mechanical dvT prophylaxis was placed. She underwent smooth induction of anesthesia. Prepped and draped in the usual fashion. A time out was held identifying correct patient, pathology, procedure, and physician. I started by culture swabs from the purulent material that spontaneously drained. I then extended the incision and evacuated the abscess cavity. The wound was 4cm x 1cm x 5cm; I dissected down to the subcutaneous tissue. I controlled for hemostasis with electrocautery. I irrigated the wound with vancomycin impregnated saline solution. I then packed with iodoform guaze. I then concluded the procedure. The patient tolerated the procedure and was escorted back to PACU in stable condition.
--- NOTE | 2018-05-02 17:58 | General Surgery Progress Note ---
Date of Encounter: 05/02/18 Time of Encounter: 17:55 - Assessment and Plan (1) Abscess of left breast Current Visit: Yes Status: Acute 43 s/p I&D of left breast abscess; diet as tolerated clean daily while in the shower wet to dry dressings daily okay to transition to PO abx cultures pending will reassess in AM; if doing well, pain controlled, afebrile, and system set up at home for care of the wound (whether family or home health), then patient can be discharged when deemed appropriate by primary team Subjective Patient reports: no new complaints, other (wound spontaneously draining) Objective Vital Signs - Last 8 Hours Temp Pulse Resp BP Pulse Ox 05/02/18 14:16 97.9 F 76 15 100/63 98 05/02/18 11:54 16 97 05/02/18 10:27 98.1 F 72 15 100/64 97 Intake and Output 05/02/18 05/02/18 05/02/18 07:59 15:59 23:59 Intake Total 50 / 50 50 / 50 650 / 650 Output Total 450 / 450 700 / 700 5 / 5 Balance -400 / -400 -650 / -650 645 / 645 Intake: IV Fluids 50 / 50 50 / 50 650 / 650 KCl 20mEq IN D5%-0.45 NACL 20 650 / 650 meq In 1,000 ml @ 100 mls/hr IVC .Q10H KYLE Rx#:[id number] Cleocin Premix 600 MG/50 ML 600 50 / 50 50 / 50 mg In 50 ml @ 50 mls/hr IVPB Q8H KYLE Rx#:[id number] Oral 0 / 0 0 / 0 Output: Urine 450 / 450 700 / 700 Estimated Blood Loss 5 / 5 Other: Meal NPO # Bowel Movements 0 Weight 69.4 kg Blood Glucose* 112 94 Patient Weight 05/02/18 23:59 Weight 69.4 kg - General physical appearance no distress - Respiratory normal expansion, normal respiratory effort - Cardiovascular Cardiovascular exam: Present: RRR - Integumentary other (purulent drainge at lower inner quadrant of breast at inframmary fold) - Neurologic CN 2-12 grossly intact - Psychiatric oriented to time, oriented to person, oriented to place - Labs 05/01/18 04:38 05/01/18 04:38 Consult Discharge Plan - Plan Referrals: NONE,PCP [Primary Care Provider] -
--- NOTE | 2018-05-02 18:14 | Anesthesia Evaluation Post Op ---
Date of Encounter: 05/02/18 Time of Encounter: 18:13 - Vital Signs Vital Signs: Vital Signs/O2 Sat, Most Current Temp Pulse Resp BP Pulse Ox 97.3 F L 74 18 122/78 100 05/02/18 18:05 05/02/18 18:05 05/02/18 18:05 05/02/18 18:05 05/02/18 18:05 - Lungs Lungs: Clear Ascult./Percussion - Airway Airway: Non-obstructed - Cardiovascular Regular Rate - Mental Status Mental Status: Alert & Oriented, Answers Appropriately - Pain Pain Scale: 0 Pain Scale used: Numeric (1 - 10) - Nausea Vomiting Nausea Vomiting: Not Present - Hydration Hydration: Ice chips, Has not voided - Discharge PostOp Status: Transfer Patient to floor
[2018-05-02] MEDS ORDERED: Acetaminophen 325 MG TABLET PO PRN (18:16)
[2018-05-03] MEDS: traMADol 50 MG TABLET PO PRN ×2 (00:25→09:13)
[2018-05-03] MEDS: Ipratropium/Albuterol Neb 3 ML IH SCH ×3 (03:03→11:32)
[2018-05-03 04:10] LABS: Basophils % 0.1 %; Hematocrit 35.4 % (35.3-44.9); Hemoglobin 12.1 g/dL (11.5-15.4); Immature Granulocytes % 1.2 % (0-4); Lymphocytes # 0.6 K/mcL (0.6-4.6); Lymphocytes % 7.8 %; Mean Corpuscular HGB Conc 34.2 g/dL (31.6-35.5); Mean Corpuscular Volume 87.8 fL (83.0-100.0); Mean Platelet Volume 11.2 fL (9.4-12.4); Monocytes # 0.3 K/mcL (0.0-1.3); Monocytes % 4.1 %; Neutrophils # 6.6 K/mcL (1.6-8.9); Platelet Count 161 K/mcL (140-400); Red Blood Count 4.03 M/mcL (3.82-4.97); Red Cell Distribution Width 12.9 % (11.5-14.5); Segmented Neutrophils % 86.8 %
[2018-05-03 04:30] LABS: BUN/Creatinine Ratio 10 (6-26); Blood Urea Nitrogen 6 mg/dL (6-20); Calcium 9.2 mg/dL (8.6-10.3); Carbon Dioxide 25 mEq/L (23-29); Chloride 104 mEq/L (98-107); Glucose 172 mg/dL (70-105); Osmolality,Calculated 280 (280-300); Potassium 4.8 mEq/L (3.5-5.1); Sodium 134 mEq/L (136-145); eGFR For Non-African Americans > 60 (> 60)
[2018-05-03] MEDS: Clindamycin 600 MG/50 ML 600 MG/50 ML IV.SOLN IVPB SCH (06:07)
[2018-05-03] MEDS: *HR* Heparin 5,000 UNIT/ML VIAL SQ SCH (06:12)
[2018-05-03 10:22] VITALS: BP 118/76
--- NOTE | 2018-05-03 10:22 | Discharge Summary ---
- NOTES TO OUTPATIENT PROVIDER Notes to Outpatient Provider: Noted for management of left breast cellulitis and abscess, status post incision and drainage by surgery 05/02. Follow-up with surgery for home care. Complete antibiotics for seven more days. Orders not resulted at time of discharge: Pending orders 05/02/18 17:42 Culture,Anaerobic [RM] Routine Culture,Wound [RM] Routine Date of Encounter: 05/03/18 Time of Encounter: 10:10 - Discharge Diagnosis (1) Abscess of left breast Priority: Primary Status: Acute (2) Hypokalemia Priority: Primary Status: Resolved (3) Tobacco dependence Priority: Secondary Status: Chronic (4) DVT prophylaxis Priority: Primary Status: Resolved (5) Migraine Priority: Secondary Status: Chronic Qualifiers: Migraine type: unspecified Status migrainosus presence: without status migrainosus Intractability: not intractable Qualified Code(s): G43.909 - Migraine, unspecified, not intractable, without status migrainosus Hospital course: Ms. 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 She had associated subjective fevers and chills. She was not septic on arrival. Workup on admission revealed 3.3 cm left breast abscess associated with cellulitis by CAT scan and breast ultrasound. The patient was started on vancomycin intravenously, and pain control. Surgery was consulted. The patient had incision and drainage of the left breast abscess done 05/02/18. The patient was seen and evaluated at the bedside this morning with family, she denies complaints apart from pain, she has been taught by the RN how to do her wound dressing. She is discharged with pain control and oral antibiotics We will follow her wound cultures and call her back if antibiotics need changes Plan of care discussed, verbalized understanding Discharge discussed with: patient, nurse Time spent discussing smoking cessation with patient: 3 to 10 minutes - Time Spent with Patient Total time spent providing and/or coordinating discharge services: Less than 30 minutes - Discharge Medications Prescriptions: OxyCODONE Immed Rel [Roxicodone 5 MG] 5 mg PO Q6HR PRN 3 Days #12 tablet PRN Reason: Severe Pain Clindamycin HCl [Cleocin HCl] 300 mg PO TID #21 cap Home Medications: Fenoprofen Calcium 600 mg PO TID PRN 10 Days #30 tablet 04/07/18 [Rx] Clindamycin HCl [Cleocin HCl] 300 mg PO TID #21 cap 05/03/18 [Rx] OxyCODONE Immed Rel [Roxicodone 5 MG] 5 mg PO Q6HR PRN 3 Days #12 tablet [Rx] Allergies/Adverse Reactions: 3 Allergy/AdvReac Type Severity Reaction Status Date / Time acetaminophen [From Vicodin] Allergy Headache Verified 04/29/18 23:26 clarithromycin [From Biaxin] Allergy Difficulty Verified 04/29/18 23:26 Breathing hydrocodone [From Vicodin] Allergy Headache Verified 04/29/18 23:26 sumatriptan [From Imitrex] Allergy Hives Verified 04/29/18 23:26 Date of admission: 04/30/18 06:02 Primary care physician: PCP NONE Consults: 05/01/18 10:16 Consult to Respiratory Therapy [CONS] Routine Reason for Consult: Aggressive pulmonary toileting and scheduled duonebs in the setting of smoking history and patient will be going to surgery tomorrow Time Notified: 10:18 Call Completed: No Discharging clinician: Sunday Palacios Anticipated date of discharge: 05/03/18 - Constitutional Vitals: Temp Pulse Resp BP Pulse Ox 97.6 F 61 16 106/66 96 05/03/18 06:50 05/03/18 06:50 05/03/18 08:02 05/03/18 06:50 05/03/18 08:02 General appearance: Present: A&O X 3, pleasant, no acute distress - Head Head exam: Present: atraumatic, normocephalic - Eye Eye exam: Present: PERRL, conjuntiva pink, sclera anicteric Pupils: Present: PERRL - Neck Neck exam general surgery: Present: supple, trachea midline. Absent: lymphadenopathy - Respiratory Respiratory exam: Present: CTAB. Absent: accessory muscle use, rales, rhonchi, wheezes Additional comments: L breast dressing clean and dry - Cardiovascular Cardiovascular exam: Present: RRR, +S1, +S2. Absent: diastolic murmur, gallop, rubs, systolic murmur - GI/Abdominal GI/Abdominal exam: Present: normal bowel sounds, soft, no peritoneal signs. Absent: distended, tenderness - Extremities Exam Extremities exam: Present: warm, radial pulses palpable and symmetrical. Absent : calf tenderness, cyanotic, pedal edema - Neurological Exam Neurological exam: Present: CN II-XII intact, oriented X3, no focal deficits. Absent: pronater drift, facial droop, speech deficit - Skin Skin exam: Present: dry, intact - Patient Status Disposition: Home, Self-Care Condition: Good Functional capacity at discharge: independent ambulation Overall status at discharge: patient is progressing back to baseline - Discharge Instructions Follow Up With: NONE,PCP [Primary Care Provider] - - Diet and Activity Activity: resume usual activities as tolerated Diet: regular diet
--- NOTE | 2018-05-03 14:32 | General Surgery Progress Note ---
<Sally Price E - Last Filed: 05/03/18 14:29> Date of Encounter: 05/03/18 Time of Encounter: 08:00 - Assessment and Plan (1) Abscess of left breast Status: Acute Wash with soap and water daily, packed with half-inch iodoform gauze, covered with clean dry dressing. Follow-up with wound care on Saturday Surgery will sign off at this time, thank you for mass versus pain this patient' s care, given any questions or concerns please feel free to contact us. Subjective Patient reports: feels better, pain is less (Patient says the pain is less, she is ready to go home, has friends to help with packing.), flatus, no bowel movement Objective Vital Signs - Last 8 Hours Temp Pulse Resp BP Pulse Ox 05/03/18 10:19 97.9 F 65 16 118/76 95 05/03/18 08:02 16 96 05/03/18 06:50 97.6 F 61 16 106/66 97 Intake and Output 05/02/18 05/03/18 05/03/18 23:59 07:59 15:59 Intake Total 700 / 700 50 / 50 120 / 120 Output Total 80 / 80 3100 / 3100 900 / 900 Balance 620 / 620 -3050 / -3050 -780 / -780 Intake: IV Fluids 700 / 700 50 / 50 KCl 20mEq IN D5%-0.45 NACL 20 650 / 650 meq In 1,000 ml @ 100 mls/hr IVC .Q10H KYLE Rx#:[id number] Cleocin Premix 600 MG/50 ML 600 50 / 50 50 / 50 mg In 50 ml @ 50 mls/hr IVPB Q8H KYLE Rx#:[id number] Oral 0 / 0 0 / 0 120 / 120 Output: Urine 75 / 75 3100 / 3100 900 / 900 Estimated Blood Loss 5 / 5 Other: Meal npo Breakfast Percent of Meal Consumed 50% # Voids 1 # Bowel Movements 0 0 Weight 72.9 kg Patient Weight 05/03/18 23:59 Weight 72.9 kg - General physical appearance well developed, well nourished, no distress - Respiratory normal expansion, normal respiratory effort, clear to auscultation - Cardiovascular Cardiovascular exam: Present: RRR, no murmurs/rubs/gallops - Abdomen Abdomen: Present: bowel sounds present, soft, non tender - Incision Incision: Present: draining, serosanguinous, open - Musculoskeletal normal posture - Psychiatric oriented to time, oriented to person, oriented to place - Labs 05/03/18 04:00 05/03/18 04:00 Diabetes panel 05/03/18 Range/Units 04:00 Sodium 134 L (136-145) mEq/L Potassium 4.8 (3.5-5.1) mEq/L Chloride 104 (98-107) mEq/L Carbon Dioxide 25 (23-29) mEq/L BUN 6 (6-20) mg/dL Creatinine 0.62 (0.60-1.20) mg/dL Glucose 172 H (70-105) mg/dL Calcium 9.2 (8.6-10.3) mg/dL Calcium panel 05/03/18 Range/Units 04:00 Calcium 9.2 (8.6-10.3) mg/dL Pituitary panel 05/03/18 Range/Units 04:00 Sodium 134 L (136-145) mEq/L Potassium 4.8 (3.5-5.1) mEq/L Chloride 104 (98-107) mEq/L Carbon Dioxide 25 (23-29) mEq/L BUN 6 (6-20) mg/dL Creatinine 0.62 (0.60-1.20) mg/dL Glucose 172 H (70-105) mg/dL Calcium 9.2 (8.6-10.3) mg/dL Adrenal panel 05/03/18 Range/Units 04:00 Sodium 134 L (136-145) mEq/L Potassium 4.8 (3.5-5.1) mEq/L Chloride 104 (98-107) mEq/L Carbon Dioxide 25 (23-29) mEq/L BUN 6 (6-20) mg/dL Creatinine 0.62 (0.60-1.20) mg/dL Glucose 172 H (70-105) mg/dL Calcium 9.2 (8.6-10.3) mg/dL Consult Discharge Plan - Plan Instructions: Breast Abscess Drainage (DC) Referrals: NONE,PCP [Primary Care Provider] - Prescriptions: OxyCODONE Immed Rel [Roxicodone 5 MG] 5 mg PO Q6HR PRN 3 Days #12 tablet PRN Reason: Severe Pain Clindamycin HCl [Cleocin HCl] 300 mg PO TID #21 cap <Dedrick Faust M - Last Filed: 05/04/18 08:14> Date of Encounter: 05/03/18 Objective - Labs 05/03/18 04:00 05/03/18 04:00 - Attending Attestation I examined this patient and my medical decision-making was reviewed with the Resident Physician. I agree with the documented findings, disposition and treatment plan as described except to the extent set forth below. I reviewed the above assessment and evaluation and agree with the above plan.
== END 2018-05-03 12:25 | disposition home or self-care (01) ==
LOC: 3ANU 23:20 → EMEROOARM 23:20 → SUATTDRO 04-30 06:02 → 3ANU 04-30 06:40
PROVIDERS: ADMIT Family Medicine; ATTEND Internal Medicine